=== PATIENT | female | born 1985 | race Caucasian/White ===

== ENCOUNTER → 2017-02-13 | Outpatient (CLI) | payer OTHER | LOC: ULTRA 08:06 | DX: R94.5 Abnormal results of liver function studies (principal) ==

== ENCOUNTER 2018-07-24 17:49 | Emergency (ER) | payer OTHER ==
[~2018-07-24] VITALS: Ht 175.3 cm; Wt 108.9 kg
--- NOTE | ~2018-07-24 | EKG ---
[address] [place] [address] ELECTROCARDIOGRAM REPORT Name: BOO HEREDIA [id number] Admission: 07/24/18 Attend Phys: Discharge: 07/24/18 Date of : 83 Report #: [id number] THIS REPORT FOR: //name// [facility] ED Test Date: 2018-07-24 Test Time: 18:30:09 Pat Name: BOO HEREDIA Department: Room: Gender: F [employer] Operator: : 1985 Requested By: Kathia Champagne Order Number: [id number] MD: Gurpreet Osei Measurements Intervals [place] Rate: 75 P: 0 [place]: 175 QRS: -38 QRSD: 146 T: 38 QT: 409 QTc: 457 Interpretive Statements Sinus rhythm Right bundle branch block Left ventricular hypertrophy No previous ECG available for comparison Electronically Signed On 07-25-2018 7:51:28 [employer] by Gurpreet Osei [email or web address] <ELECTRONICALLY SIGNED> By: Gurpreet Osei MD, [facility] 07/25/18 0751 1830 1830 Gurpreet Osei MD, FACC /EPI
[~2018-07-24 17:49] MED LIST: MAXZIDE-25 MG1 EACH PO; PROTONIX 20 MG20 M1 PO; PROTONIX40 M1 PO; VALERIAN150 MG PO; VENLAFAXIN75 MG/1 T2 PO
[2018-07-24 18:33] LABS: URINE BILIRUBIN NEGATIVE (Negative); URINE BLOOD NEGATIVE (Negative); URINE CLARITY SL CLOUDY; URINE COLOR YELLOW; URINE GLUCOSE-RANDOM* NEGATIVE (Negative); URINE KETONES NEGATIVE (Negative); URINE LEUKOCYTES 1+ (Negative); URINE NITRITE NEGATIVE (Negative); URINE PROTEIN (DIPSTICK) NEGATIVE (Negative); URINE UROBILINOGEN 0.2 E.U./dl (0.2-1.0)
[2018-07-24] MEDS ORDERED: VITAMINC500 PO (18:33)
[2018-07-24] MEDS ORDERED: ZINC50 M1 PO (18:34)
[2018-07-24 18:44] LABS: CASTS None Seen /LPF (None Seen); CRYSTALS None Seen /LPF (None Seen); SQUAMOUS 4-10 Moderate /LPF (0-3)
[2018-07-24 18:45] LABS: BACTERIA >30 Many /HPF (None Seen); URINE RBC None Seen /HPF (0-2); URINE WBC 0-5 Rare /HPF (0-5)
[2018-07-24 19:13] LABS: ABSOLUTE NEUTROPHILS 5.3 thou/uL (1.4-8.2); BASOPHILS 1.3 % (0.0-2.0); EOSINOPHILS 2.7 % (0.0-3.0); HEMATOCRIT 46.1 % (37.0-47.0); HEMOGLOBIN 16.1 gm/dL (12.0-15.0); LYMPHOCYTES 39.9 % (24.0-44.0); MCH 30.6 pg (26.0-34.0); MCHC 34.8 g/dL (28.0-37.0); MCV 87.9 fL (80.0-100.0); MONOCYTES 7.1 % (1.0-8.0); PLATELET COUNT 308 thou/uL (150-400); RBC 5.25 mil/uL (4.20-5.00); RDW 13.1 % (10.5-14.5); WBC 10.7 thou/uL (4.0-11.0)
[2018-07-24 19:22] LABS: ANION GAP 9 mmol/L (7-16); BUN 8 mg/dL (7-18); CALCIUM 9.3 mg/dL (8.5-10.1); CHLORIDE 101 mmol/L (98-107); CO2 28 mmol/L (21-32); CREATININE 0.8 mg/dL (0.6-1.0); GLUCOSE 101 mg/dL (74-106); POTASSIUM 3.3 mmol/L (3.5-5.1); SODIUM 138 mmol/L (136-145)
[2018-07-24 19:30] LABS: ALBUMIN 3.8 g/dL (3.4-5.0); LIPASE 170 U/L (73-393); SGOT 28 U/L (15-37); SGPT 96 U/L (30-65); TOTAL BILIRUBIN 0.3 mg/dL (<0.1-1.0); TOTAL PROTEIN 7.8 g/dL (6.4-8.2); TROPONIN-I <0.06 ng/mL (<0.06)
[2018-07-24 19:32] LABS: APTT 29.2 Seconds (24.5-32.8); INR 1.1; PROTIME 11.9 Seconds (9.3-11.4)
[2018-07-24] MEDS ORDERED: ZOFRAN 4 MG ORAL4 MG PO (20:26)
[2018-07-24 20:27] VITALS: BP 133/89
== END 2018-07-24 20:33 | disposition home or self-care (01) ==
LOC: ER 17:49
PROVIDERS: Physician Assistant
DX: E87.6 Hypokalemia (principal); E86.0 Dehydration; K92.1 Melena; K21.9 Gastro-esophageal reflux disease without esophagitis; I10 Essential (primary) hypertension; F17.210 Nicotine dependence, cigarettes, uncomplicated; Z88.1 Allergy status to other antibiotic agents

== ENCOUNTER → 2020-12-03 | Outpatient (CLI) | payer BC, OTHER ==
[~2020-12-03] MED LIST changes: +VITAMINC500 PO; +ZINC50 M1 PO; +ZOFRAN 4 MG ORAL4 MG PO
== END ==
LOC: ULTRA 07:54
PROVIDERS: ATTEND Family Medicine
DX: R10.11 Right upper quadrant pain (principal)

== ENCOUNTER 2021-06-30 20:37 | Emergency (ER) | payer OTHER ==
[~2021-06-30] VITALS: Ht 175.3 cm; Wt 104.3 kg
[2021-06-30] MEDS ORDERED: AUGMENTIN 875-1 EACH PO ×2 (21:47→22:16)
[2021-06-30 22:05] VITALS: BP 127/83
== END 2021-06-30 22:05 | disposition home or self-care (01) ==
LOC: ER 20:37 → EDBD 20:37 → ER 22:05
DX: S61.236A Puncture wound without foreign body of right little finger without damage to nail, initial encounter (principal); F41.9 Anxiety disorder, unspecified; F32.9 Major depressive disorder, single episode, unspecified; E66.01 Morbid (severe) obesity due to excess calories; F17.210 Nicotine dependence, cigarettes, uncomplicated; Z79.899 Other long term (current) drug therapy; Z88.1 Allergy status to other antibiotic agents; W55.01XA Bitten by cat, initial encounter; Y93.89 Activity, other specified; Y92.89 Other specified places as the place of occurrence of the external cause; Y99.8 Other external cause status